=== PATIENT | female | born 1975 | race American Indian/Alaskan Native ===

== ENCOUNTER 2017-12-01 15:57 | Outpatient (CLI) | payer BC | END 2017-12-01 15:58 | disposition home or self-care (01) | LOC: LABHHL 15:57 | PROVIDERS: ATTEND Surgery | DX: N60.22 Fibroadenosis of left breast (principal) | CPT/HCPCS: 88112; 88305 ==

== ENCOUNTER 2017-12-01 16:15 | Outpatient (CLI) | payer BC ==
--- NOTE | 2017-12-01 16:33 | Mammography Report ---
LEFT DIGITAL DIAGNOSTIC MAMMOGRAM: 12/01/17 16:15:00 CLINICAL: For clip placement immediately status post ultrasound biopsy. COMPARISON:Recent mammogram at [facility] FINDINGS: A biopsy clip is now identified at 10 o'clock in this concordant with the previously described mass. IMPRESSION: Concordant clip placement status post ultrasound biopsy. BI-RADS CATEGORY: 4--Suspicious Pathology pending.
== END 2017-12-01 16:16 | disposition home or self-care (01) ==
LOC: SPVWC 16:15
PROVIDERS: ATTEND Surgery
DX: R92.8 Other abnormal and inconclusive findings on diagnostic imaging of breast (principal)

== ENCOUNTER 2018-04-20 13:02 | Outpatient (CLI) | payer BC ==
--- NOTE | 2018-04-20 13:38 | Mammography Report ---
LEFT DIGITAL DIAGNOSTIC MAMMOGRAM with CAD: 04/20/18 13:02:00 CLINICAL: Follow-up after benign biopsy. COMPARISON:12/01/17 FINDINGS: The breast is heterogeneous and dense with a stable fibroglandular pattern. A slightly smaller partially circumscribed mass with the biopsy clip at 10 o'clock. No new mass, architectural distortion or suspicious calcifications. IMPRESSION: No mammographic evidence of malignancy. BI-RADS CATEGORY: 2 -- Benign RECOMMENDATION: Return to routine mammographic screening. ACR BI-RADS MAMMOGRAPHIC CODES: 0 = Needs additional imaging evaluation; 1 = Negative; 2 = Benign; 3 = Probably benign; 4 = Suspicious; 5 = Malignant; 6 = Known biopsy-proven malignancy COMMENT: 1. Dense breast tissue, i.e., adenosis, fibrocystic changes, etc., may obscure an underlying neoplasm. 2. Approximately 10% of cancers are not detected with mammography. 3. A negative mammography report should not delay biopsy if a clinically suspicious mass is present. COMMENT: Patient follow-up letters are generated by our [employer] application.
== END 2018-04-20 13:03 | disposition home or self-care (01) ==
LOC: SPVWC 13:02
PROVIDERS: ATTEND Surgery
DX: R92.8 Other abnormal and inconclusive findings on diagnostic imaging of breast (principal)

== ENCOUNTER 2018-10-25 13:21 | Outpatient (CLI) | payer MEDICARE ==
--- NOTE | 2018-10-25 15:40 | Mammography Report ---
RIGHT DIGITAL DIAGNOSTIC MAMMOGRAM and BILATERAL BREAST ULTRASOUND: 10/25/18 13:21:00 CLINICAL: Recalled to evaluate a right mammographic asymmetry and evaluate a known left fibroadenoma. COMPARISON:10/19/18 screening mammogram. No previous ultrasound comparison of the left. FINDINGS: Lateralmedial and spot magnification MLO and CC views of the right breast were performed. An oval mass with a slightly lobular contour persists on all views. Ultrasound of the right breast demonstrated an oval solid isoechoic mass at 3 o'clock 8 cm from the nipple. It measures 6 x 6 x 3 mm and correlates with the mammographic density. Ultrasound of the left breast demonstrated a solid oval heterogeneous slightly hypoechoic mass at 10 o'clock 8 cm from the nipple. There is an adjacent biopsy hydro-franco clip. The mass measures 1.1 x 0.5 x 0.6 cm. IMPRESSION: 1. A 1.1 x 0.5 x 0.6 cm biopsy-proven left fibroadenoma at 10 o'clock 8 cm from the nipple. 2. A solid 6 mm right breast mass at 3 o'clock 8 cm from the nipple.We will attempt to obtain a previous right mammogram for comparison from [facility]. It there is no comparison right mammogram, recommend 6 month followup right mammogram with right breast ultrasound to reevaluate the size of the solid mass at 3 o'clock. BI-RADS CATEGORY: 0--Needs Additional Evaluation ACR BI-RADS MAMMOGRAPHIC CODES: 0 = Needs additional imaging evaluation; 1 = Negative; 2 = Benign; 3 = Probably benign; 4 = Suspicious; 5 = Malignant; 6 = Known biopsy-proven malignancy COMMENT: 1. Dense breast tissue, i.e., adenosis, fibrocystic changes, etc., may obscure an underlying neoplasm. 2. Approximately 10% of cancers are not detected with mammography. 3. A negative mammography report should not delay biopsy if a clinically suspicious mass is present. COMMENT: Patient follow-up letters are generated via our [employer] application.
== END 2018-10-25 13:22 | disposition home or self-care (01) ==
LOC: SPVWC 13:21
PROVIDERS: ATTEND Surgery
DX: D24.2 Benign neoplasm of left breast (principal); N63.12 Unspecified lump in the right breast, upper inner quadrant

== ENCOUNTER 2018-11-02 08:09 | Outpatient (CLI) | payer MEDICARE ==
--- NOTE | 2018-11-03 16:05 | Magnetic Resonance Report ---
BILATERAL BREAST MRI WITHOUT AND WITH CONTRAST: 11/02/18 08:09:00 CLINICAL: High risk for breast cancer given a family history of breast cancer in her mother at age 64 and colon cancer in her maternal aunt at age 20. On 10/01/17 she had an ultrasound guided needle biopsy of a left fibroadenoma at 11 o'clock. A right mammogram and ultrasound on 10/25/18 demonstrated a 6 mm solid nodule at 3 o'clock 8 cm from the nipple. COMPARISON:10/25/18 and 10/19/18. TECHNIQUE: Axial 1.0-mm T1 without, axial high resolution 2.0-mm T2 and axial 1.0-mm dynamic Vibrant high-resolution postcontrast T1 fat saturation sequences on a 1.5 Rachel magnet. The examination was performed with an 8 channel dedicated [place] breast coil. Post processing with CAD and subtraction was performed on an [employer] workstation. 19.0 cc of Multihance was injected without incident for the contrast portion of the exam. Consent was obtained prior to the administration of the contrast. FINDINGS: Right: Moderate background parenchymal enhancement. No mass or suspicious enhancement. A benign lymph node with a fatty hilum at 3 o'clock 11.5 cm from the nipple measures 6.6 x 4.3 x 3.4 mm and correlates with the nodule identified by ultrasound and mammography. No suspicious right axillary or right internal mammary lymph nodes. Left: Moderate background parenchymal enhancement. No suspicious mass or suspicious enhancement. An irregular enhancing mass of the upper inner quadrant 9.8 cm from the nipple measures 1.4 x 1.0 x 0.6 cm. It demonstrates a benign pattern of enhancement with 92% type I persistent waveform. It is hyperintense on T2, contains a biopsy clip and corresponds to the biopsy proven fibroadenoma. No other mass. No suspicious left axillary or left internal mammary lymph nodes. IMPRESSION: Negative study with a benign 6 mm right intraparenchymal lymph node at 3 o'clock and a left benign fibroadenoma at 11 o'clock. Recommend routine mammographic screening. BI-RADS 2 - - Benign
== END 2018-11-02 08:10 | disposition home or self-care (01) ==
LOC: SPVIMAG 08:09
PROVIDERS: ATTEND Surgery
DX: R92.8 Other abnormal and inconclusive findings on diagnostic imaging of breast (principal)
CPT/HCPCS: A9577; C8908; 77049

== ENCOUNTER 2019-04-26 10:22 | Outpatient (CLI) | payer MEDICARE ==
--- NOTE | 2019-04-26 11:44 | Mammography Report ---
RIGHT DIGITAL DIAGNOSTIC MAMMOGRAM WITH CAD -- 04/26/2019 RIGHT LIMITED BREAST ULTRASOUND INDICATION: Follow-up right breast nodule. TECHNIQUE: Digital right mammographic imaging was performed. Limited ultrasound was performed. This examination was interpreted with the benefit of Computer-Aided Detection (CAD) analysis. COMPARISON: 10/25/2018 mammogram and ultrasound FINDINGS: Breast Density: The breast is heterogeneously dense, which may obscure small masses. MAMMOGRAPHIC FINDINGS: There is no evidence of dominant mass, suspicious calcifications or architectu ral distortion in either breast. ULTRASOUND FINDINGS: Targeted ultrasound evaluation was performed of the area of interest. A stable oval relatively smooth slightly hypoechoic lymph node or nodule at 3:00 7 cm from the nipple. It julia sures 7 x 3 x 5 mm compared to 6 x 6 x 3 mm on the last exam. IMPRESSION: Stable benign finding at 3:00. Follow up recommendation: Routine yearly BI-RADS Category 2: Benign. A "normal" or negative report should not discourage follow up or biopsy of a clinically significant f inding. A written summary of these findings will be mailed to the patient. The patient will be entered into a mammography reporting system which will generate a reminder letter for the patient's next appointmen t at the appropriate interval. According to the [employer], yearly mammograms are recommended starting at age 40 and continuing as long as a woman is in good health. Breast MRI is recommended for women with an ciara roximately 20-25% or greater lifetime risk of breast cancer, including women with a strong family his tory of breast or ovarian cancer and women who have been treated for Hodgkin's disease. Signer Name: Blair Ugalde MD Signed: 04/26/2019 11:39 AM Workstation Name: [id number]
== END 2019-04-26 10:23 | disposition home or self-care (01) ==
LOC: SPVWC 10:22
PROVIDERS: ATTEND Surgery
DX: N63.41 Unspecified lump in right breast, subareolar (principal)

== ENCOUNTER 2019-10-25 10:00 | Outpatient (CLI) | payer MEDICARE ==
--- NOTE | 2019-10-25 10:41 | Mammography Report ---
DIGITAL SCREENING MAMMOGRAM WITH CAD, 10/25/2019 INDICATION: Routine screening mammography. TECHNIQUE: Digital bilateral 2D mammography was obtained in the craniocaudal and mediolateral obliq ue projections. This examination was interpreted with the benefit of Computer-Aided Detection analysi s. COMPARISON: 10/19/2018, 04/26/2019, 04/20/2018, 12/11/2017 FINDINGS: Breast Density: The breasts are heterogeneously dense, which may obscure small masses. There is no evidence of dominant mass, suspicious calcifications or architectural distortion in eithe r breast. Circumscribed oval nodule containing a biopsy clip is again noted in the left breast. IMPRESSION: Follow up recommendation: Routine yearly BI-RADS Category 2: Benign. A "normal" or negative report should not discourage follow up or biopsy of a clinically significant f inding. A written summary of these findings will be mailed to the patient. The patient will be entered into a mammography reporting system which will generate a reminder letter for the patient's next appointmen t at the appropriate interval. The [employer] recommends yearly mammograms starting at age 40 and continuing as l sloan as a woman is in good health. Breast MRI is recommended for women with an approximate 20-25% or greater lifetime risk of breast cancer, including women with a strong family history of breast or ova marta cancer or who have been treated for Hodgkin's disease. Signer Name: Vira Tapia MD Signed: 10/25/2019 10:37 AM Workstation Name: [email or web address]
== END 2019-10-25 10:01 | disposition home or self-care (01) ==
LOC: SPVWC 10:00
PROVIDERS: ATTEND Surgery
DX: Z12.31 Encounter for screening mammogram for malignant neoplasm of breast (principal)
CPT/HCPCS: 77067